=== PATIENT | male | born 1985 | race Caucasian/White ===

== ENCOUNTER 2017-07-07 10:41 | Emergency (ER) | payer MEDICAID, OTHER ==
[~2017-07-07] VITALS: Ht 160 cm; Wt 60.0 kg
[~2017-07-07 10:41] MED LIST: PERM5CRE4 TOP
[2017-07-07 11:04] VITALS: BP 118/72; PULSE 73; RESP 16; TEMP 98.1; O2SAT 99
[2017-07-07] MEDS ORDERED: POLY10O LEFT EYE (12:55)
--- NOTE | 2017-07-07 12:56 | PD ---
HPI Chief Complaint: Eye Problems/Injury Time Seen by Provider: 11:53 Travel History International Travel<30 days: No Contact w/Intl Traveler<30days: No Traveled to known affect area: No History of Present Illness HPI [id number] male presents emergency Department with complaint of left eye redness, irritation, and crusted, purulent drainage that he woke up with this morning. Denies eye pain. Denies trauma or foreign body to the eye. Reports some itchiness to the eye. Denies change in vision. Denies fever, vomiting. Has not taken any medications or tried any treatments to alleviate his symptoms. Symptoms are mild in severity. No known relieving or aggravating factors. No one else with similar symptoms. No known allergies. Has no other medical complaints. No other modifying factors or associated signs and symptoms. PFSH Past Medical History Diminished Hearing: No Past Surgical History Oral Surgery: Yes (ALL TEETH EXTRACTED) Social History Alcohol Use: No Tobacco Use: Yes Substance Use: Yes (marijuana) Allergies-Medications (Allergen,Severity, Reaction): Coded Allergies: No Known Allergies (Unverified Adverse Reaction, Unknown, 07/07/17) Reported Meds & Prescriptions Reported Meds & Active Scripts Active Polytrim Opth Drops (Polymyxin/Trimethoprim Sulfate) 10,000-0.1 Unit/Ml-% Soln 2 Drop LEFT EYE Q6HR 7 Days Review of Systems Except as stated in HPI: all other systems reviewed are Neg Physical Exam Narrative GENERAL: Well-nourished, well-developed male patient, in no acute distress; afebrile, nontoxic-appearing SKIN: Warm and dry. HEAD: Atraumatic. Normocephalic. EYES: Pupils equal and round at 3 mm with brisk reaction. PERRLA. EOMI. Smith lid eversion with no foreign body noted. Right eye with scleral erythema and mild lid edema. No orbital tenderness, erythema or cellulitis. Bilateral eye without photophobia. No consensual photophobia. No scleral icterus. Yellowish, crusted drainage to right eye noted. ENT: Mucosa pink and moist. Airway patent. EARS: Bilateral pinnae and external canals appear within normal limits. NECK: Trachea midline. No lymphadenopathy. CARDIOVASCULAR: Regular rate. RESPIRATORY: No accessory muscle use. GASTROINTESTINAL: Flat. NEUROLOGICAL: Awake and alert. Oriented 3. No obvious cranial nerve deficits. Motor grossly within normal limits. Normal speech. PSYCHIATRIC: Appropriate mood and affect; insight and judgment normal. Data Data Last Documented VS Vital Signs Date Time Temp Pulse Resp B/P (MAP) Pulse Ox O2 Delivery O2 Flow Rate FiO2 07/07/17 11:04 98.1 73 16 118/72 (87) 99 Orders Orders Ed Discharge Order (07/07/17 12:56) MDM Medical Decision Making Medical Screen Exam Complete: Yes Emergency Medical Condition: Yes Medical Record Reviewed: Yes Differential Diagnosis Viral conjunctivitis, bacterial conjunctivitis, allergic conjunctivitis Narrative Course 31-year-old male physical exam consistent with left eye conjunctivitis. Polytrim eyedrops prescribed for home. Instructed patient to follow up with primary care provider. Patient verbalizes understanding and agreement with treatment plan. Patient is medically cleared and stable for discharge. Discussed reasons to return to the emergency department. Patient agrees with treatment plan. The patients vital signs are stable and the patient is stable for outpatient follow-up and treatment. Patient discharged home, stable and in no acute distress. Diagnosis Primary Impression: Conjunctivitis, left eye Qualified Codes: H10.9 - Unspecified conjunctivitis Referrals: Primary Care Physician Patient Instructions: Conjunctivitis (ED), General Instructions Departure Forms: Tests/Procedures, Work Release Enter return to work date: Jul 08, 2017 Additional Instructions: Conjunctivitis is contagious Use antibiotic eye drops as prescribed Apply warm or cool compresses to both eyes for a few minutes several times daily to minimize irritation Avoid triggers, such as allergens, that may irritate your eyes Wash your hands frequently Do not share washcloths, towels, pillows, or any other material that has touched your eyes with any other household members Follow-up with your primary care provider Follow-up with ophthalmology as needed Return to the emergency department immediately with worsening of symptoms Med/Other Pt SpecificInfo: Prescription(s) given Scripts Polymyxin B-Trimethoprim Opth Drops (Polytrim Opth Drops) 10,000-0.1 Unit/Ml-% Soln 2 DROP LEFT EYE Q6HR for Mgmt Bacterial Infection for 7 Days, #1 BOTTLE 0 Refills Prov: Bessie Quintero 07/07/17 Disposition: 01 DISCHARGE HOME Condition: Stable Bessie Quintero Jul 07, 2017 12:55
== END 2017-07-07 13:01 | disposition home or self-care (01) ==
LOC: PHEFT 10:41
DX: H10.9 Unspecified conjunctivitis (principal); Z72.0 Tobacco use
CPT/HCPCS: 99283

== ENCOUNTER 2017-11-11 14:24 | Emergency (ER) | payer MEDICAID ==
[~2017-11-11] VITALS: Ht 160 cm; Wt 60.0 kg
[~2017-11-11 14:24] MED LIST changes: -PERM5CRE4 TOP; +POLY10O LEFT EYE
[2017-11-11 14:29] VITALS: BP 139/63; PULSE 79; RESP 16; TEMP 98.5; O2SAT 97
[2017-11-11] MEDS ORDERED: OCUF0.3D LEFT EYE (14:52)
--- NOTE | 2017-11-11 14:55 | PD ---
HPI Chief Complaint: Eye Problems/Injury Time Seen by Provider: 14:35 Travel History International Travel<30 days: No Contact w/Intl Traveler<30days: No Traveled to known affect area: No History of Present Illness HPI 31-year-old male presents to ED for evaluation of foreign body sensation, richard sensation, itching, watering and pain in the left eye. Onset about 2 weeks ago. Patient states that he was seen and diagnosed with conjunctivitis. He states that he used the antibiotics and symptoms improved. He states that shortly after that he became homeless and was sleeping on a friend's couch. He states that symptoms have reason a few days. Denies any direct trauma, vision changes, morning crusting in the eyes. He endorses previous history of similar episodes. PFSH Past Medical History Diminished Hearing: No Tetanus Vaccination: Unknown Influenza Vaccination: No Past Surgical History Oral Surgery: Yes (ALL TEETH EXTRACTED) Social History Alcohol Use: No Tobacco Use: Yes (1PPD) Substance Use: Yes (marijuana) Allergies-Medications (Allergen,Severity, Reaction): Coded Allergies: No Known Allergies (Verified Adverse Reaction, Unknown, 11/11/17) Reported Meds & Prescriptions Reported Meds & Active Scripts Active Ocuflox Opth Drops (Ofloxacin Opth Drops) 0.3 % Drops 1 Drop LEFT EYE Q4HR 5 Days Polytrim Opth Drops (Polymyxin/Trimethoprim Sulfate) 10,000-0.1 Unit/Ml-% Soln 2 Drop LEFT EYE Q6HR 7 Days Review of Systems Except as stated in HPI: all other systems reviewed are Neg Physical Exam Narrative GENERAL: Well-nourished, well-developed white male in no acute distress. SKIN: Focused skin assessment warm/dry. HEAD: Normocephalic. EYES: No scleral icterus. EOMI. PERRLA. OS injected, tearing. Fluorescein staining reveals tiny corneal abrasion in the 9 o'clock position. NECK: Supple, trachea midline. No JVD or lymphadenopathy. CARDIOVASCULAR: Regular rate and rhythm without murmurs, gallops, or rubs. RESPIRATORY: Breath sounds equal bilaterally. No accessory muscle use. GASTROINTESTINAL: Abdomen soft, non-tender, nondistended. MUSCULOSKELETAL: No cyanosis, or edema. BACK: Nontender without obvious deformity. No CVA tenderness. Data Data Last Documented VS Vital Signs Date Time Temp Pulse Resp B/P (MAP) Pulse Ox O2 Delivery O2 Flow Rate FiO2 11/11/17 14:29 98.5 79 16 139/63 (88) 97 Orders Orders Ed Discharge Order (11/11/17 14:55) MDM Medical Decision Making Medical Screen Exam Complete: Yes Emergency Medical Condition: Yes Differential Diagnosis Conjunctivitis versus gonococcal or chlamydial conjunctivitis versus foreign body versus corneal abrasion versus other Narrative Course 31-year-old male presents to ED for evaluation of foreign body sensation, richard sensation, itching, watering and pain in the left eye. Onset about 2 weeks ago. Treated for conjunctivitis onset of symptoms. He had some improvement but then recurrence. He thinks this may be from sleeping on a friend's couch. Denies any direct trauma, vision changes, morning crusting in the eyes. He endorses previous history of similar episodes. Vitals reviewed. On exam the left eye is injected and tearing. Fluorescein staining reveals a pinpoint corneal abrasion in the 9 o'clock position. The patient's record and he has several visits for similar symptoms in the left eye. He's never followed up with vertical borer. He denies STD history. He denies any dysuria, penile discharge. He endorses unprotected sex with his female partner of many years. He states that she is asymptomatic. He is prescribed ofloxacin drops every 4 hours 3-5 days. He is encouraged to follow-up with the vertical borer for further evaluation. He is stable and discharged home. Diagnosis Primary Impression: Injury of conjunctiva and corneal abrasion of left eye w/o FB Qualified Codes: S05.02XA - Injury of conjunctiva and corneal abrasion without foreign body, left eye, initial encounter Referrals: Ml May MD Patient Instructions: Corneal Abrasion (ED), General Instructions Additional Instructions: Rest, hydrate. Instill drops 6 times a day as prescribed. Follow-up with the vertical borer. Return to the ED for worsening symptoms or any urgent or emergent medical condition. Med/Other Pt SpecificInfo: Prescription(s) given Scripts Ofloxacin Opth Drops (Ocuflox Opth Drops) 0.3 % Drops 1 DROP LEFT EYE Q4HR for Infection for 5 Days, #1 BOTTLE 0 Refills Prov: Desiree Velazco MD 11/11/17 Disposition: 01 DISCHARGE HOME Condition: Stable Kailey Campbell Nov 11, 2017 14:54
== END 2017-11-11 15:33 | disposition home or self-care (01) ==
LOC: PHEFT 14:24
DX: S05.02XA Injury of conjunctiva and corneal abrasion without foreign body, left eye, initial encounter (principal); X58.XXXA Exposure to other specified factors, initial encounter
CPT/HCPCS: 99283

== ENCOUNTER 2017-12-20 16:02 | Emergency (ER) | payer MEDICAID ==
[~2017-12-20] VITALS: Ht 160 cm; Wt 60.0 kg
[~2017-12-20 16:02] MED LIST changes: +OCUF0.3D LEFT EYE
[2017-12-20 16:04] VITALS: BP 130/68; PULSE 79; RESP 16; TEMP 98.1; O2SAT 98
[2017-12-20] MEDS ORDERED: BACT800T5 PO (16:49)
--- NOTE | 2017-12-20 16:49 | PD ---
HPI Chief Complaint: Skin Problem Time Seen by Provider: 16:19 Travel History International Travel<30 days: No Contact w/Intl Traveler<30days: No Traveled to known affect area: No History of Present Illness HPI 32 old male here with multiple sores to his armpits, chest, groin 1 week. Denies fever chills. Reports the area started as of pustules and then spontaneously opened and scabbed. Symptom severity is mild. No aggravating or alleviating factors. Has not attempted any [id number] medications. Never had anything like this before. Denies headache, neck pain, abdominal pain , nausea or vomiting. PFSH Past Medical History Medical History: Denies Significant Hx Diminished Hearing: No Influenza Vaccination: No Past Surgical History Oral Surgery: Yes (ALL TEETH EXTRACTED) Social History Alcohol Use: No Tobacco Use: Yes (1-2 PPD) Substance Use: Yes (marijuana) Allergies-Medications (Allergen,Severity, Reaction): Coded Allergies: No Known Allergies (Verified Adverse Reaction, Unknown, 12/20/17) Reported Meds & Prescriptions Reported Meds & Active Scripts Active Review of Systems Except as stated in HPI: all other systems reviewed are Neg General / Constitutional: No: Fever Eyes: No: Visual changes HENT: No: Headaches Cardiovascular: No: Chest Pain or Discomfort Respiratory: No: Shortness of Breath Gastrointestinal: No: Abdominal Pain Genitourinary: No: Dysuria Physical Exam Narrative GENERAL: Alert and well-appearing 32-year-old male. SKIN: Warm and dry. Multiple pustules to the axilla, chest wall, abdomen. No surrounding cellulitis. The areas are not indurated or fluctuant. HEAD: Normocephalic. EYES: No scleral icterus. No injection or drainage. NECK: Supple, trachea midline. No lymphadenopathy. CARDIOVASCULAR: Regular rate and rhythm RESPIRATORY: Breath sounds equal bilaterally. No accessory muscle use. GASTROINTESTINAL: Abdomen soft, non-tender, nondistended. MUSCULOSKELETAL: No cyanosis, or edema. BACK: No CVA tenderness. Data Data Last Documented VS Vital Signs Date Time Temp Pulse Resp B/P (MAP) Pulse Ox O2 Delivery O2 Flow Rate FiO2 12/20/17 16:04 98.1 79 16 130/68 (88) 98 MDM Medical Decision Making Medical Screen Exam Complete: Yes Emergency Medical Condition: Yes Differential Diagnosis Folliculitis, abscess, cellulitis Narrative Course 32-year-old male here with folliculitis. He is nontoxic appearing. He will be prescribed Bactrim. Diagnosis Primary Impression: Folliculitis Referrals: Primary Care Physician Additional Instructions: Antibiotics as directed. Cleanse the area daily with antibiotic soap such as Dial Scripts Sulfamethoxazole-Trimethoprim (Bactrim DS) 800-160 Mg Tab 1 TAB PO BID for Infection, #20 TAB 0 Refills Prov: Kym Henlsey 12/20/17 Disposition: 01 DISCHARGE HOME Condition: Stable Kym Hensley Dec 20, 2017 16:49
== END 2017-12-20 17:02 | disposition home or self-care (01) ==
LOC: PHEFT 16:02
DX: L73.9 Follicular disorder, unspecified (principal); F17.200 Nicotine dependence, unspecified, uncomplicated
CPT/HCPCS: 99283

== ENCOUNTER 2018-02-20 08:44 | Emergency (ER) | payer MEDICAID ==
[~2018-02-20] VITALS: Ht 160 cm; Wt 59.4 kg
[~2018-02-20 08:44] MED LIST changes: +BACT800T5 PO; -OCUF0.3D LEFT EYE; -POLY10O LEFT EYE
[2018-02-20 08:45] VITALS: BP 113/71; PULSE 75; RESP 18; TEMP 97.7; O2SAT 97
[2018-02-20] MEDS ORDERED: OCUF0.3D LEFT EYE (09:32)
--- NOTE | 2018-02-20 09:33 | PD ---
HPI Chief Complaint: Eye Problems/Injury Time Seen by Provider: 09:12 Travel History International Travel<30 days: No Contact w/Intl Traveler<30days: No Traveled to known affect area: No History of Present Illness HPI 32 year old male presents to the emergency department for evaluation of left eye itchiness, drainage that started yesterday, but worsened upon awakening this morning. He reports history of conjunctivitis and states this feels similar. Patient denies any trauma or foreign body sensation to the left eye. He denies new visual changes or pain to the eye. No photophobia. He denies any alleviating or aggravating factors. He has no chronic medical problems and takes no prescribed medications. Mild severity. PFSH Past Medical History Diminished Hearing: No Tetanus Vaccination: Unknown ?: Not Past Surgical History Oral Surgery: Yes (ALL TEETH EXTRACTED) Social History Alcohol Use: No Tobacco Use: Yes (1-2 PPD) Substance Use: Yes (marijuana) Allergies-Medications (Allergen,Severity, Reaction): Coded Allergies: No Known Allergies (Verified Adverse Reaction, Unknown, 02/20/18) Reported Meds & Prescriptions Reported Meds & Active Scripts Active No Active Prescriptions or Reported Medications Review of Systems Except as stated in HPI: all other systems reviewed are Neg Physical Exam Narrative GENERAL: Well developed, well nourished male patient, ambulatory and in no acute distress. Afebrile. SKIN: Warm and dry. HEAD: Normocephalic. Atraumatic. ENT: Mucosa pink and moist. No erythema or exudates. No uvular edema. No uvular , palatal, or tonsillar deviation. Airway patent. Nasal turbinates appear normal without nasal blood, purulent drainage or septal hematoma. Bilateral tympanic membranes clear without erythema or perforation. EYES: No scleral icterus. Left sclera is erythematous, mild drainage noted to the medial aspect of the left eye. No photophobia on exam. PERRLA. No foreign body seen in upper lid eversion. Fluorescein examination is negative. NECK: Supple, trachea midline. No JVD or lymphadenopathy. CARDIOVASCULAR: Regular rate and rhythm without murmurs, gallops, or rubs. RESPIRATORY: Breath sounds equal bilaterally. No accessory muscle use. Lung sounds are clear to auscultation. MUSCULOSKELETAL: No cyanosis, or edema. BACK: No obvious deformity. Data Data Last Documented VS Vital Signs Date Time Temp Pulse Resp B/P (MAP) Pulse Ox O2 Delivery O2 Flow Rate FiO2 02/20/18 08:45 97.7 75 18 113/71 (85) 97 MDM Medical Decision Making Medical Screen Exam Complete: Yes Emergency Medical Condition: Yes Medical Record Reviewed: Yes Differential Diagnosis Conjunctivitis versus iritis versus corneal abrasion versus foreign body Narrative Course 32-year-old male presents to the emergency department for evaluation of left eye erythema and itching that started yesterday, but worsened this morning. Fluorescein examination is negative. Patient appears well on exam. On visual acuity, the vision is worse in the left eye, but states that this is his normal vision and states he has had no change in his vision. Physical exam and symptoms are consistent with conjunctivitis. Patient states that the eyedrops that were given to him back in October worked well for him and other eyedrops have not. Upon review of the previous visit, he was given a prescription for ofloxacin. He will be given a prescription for this. He is to follow-up with an insole reinforcer if symptoms continue or do not worsen. He is to return here for any acute worsening of symptoms. He is requesting a note for work as well which will be provided. The patient was discharged in stable condition with instructions, including return instructions and follow up instructions. Diagnosis Primary Impression: Conjunctivitis Qualified Codes: H10.32 - Unspecified acute conjunctivitis, left eye Referrals: Capacitor Tester as needed Patient Instructions: Conjunctivitis (ED), General Instructions Departure Forms: Tests/Procedures, Work Release Enter return to work date: Feb 22, 2018 Additional Instructions: Use eye drops as directed. Good handwashing. Avoid rubbing your eye. Warm compresses as needed. Follow up with an insole reinforcer if symptoms continue or worsen. Return to the emergency department for any acute, worsening of symptoms. Med/Other Pt SpecificInfo: Prescription(s) given Scripts Ofloxacin Opth Drops (Ocuflox Opth Drops) 0.3 % Drops 1 DROP LEFT EYE Q4HR for Infection, #1 BOTTLE 0 Refills Prov: Elizabeth Ku SANTA 02/20/18 Disposition: 01 DISCHARGE HOME Condition: Stable Panda Kublanca PRATT Feb 20, 2018 09:33
== END 2018-02-20 09:45 | disposition home or self-care (01) ==
LOC: PHED 08:44
DX: H10.32 Unspecified acute conjunctivitis, left eye (principal); F12.90 Cannabis use, unspecified, uncomplicated; Z72.0 Tobacco use
CPT/HCPCS: 99283